=== PATIENT | male | born 1955 | race Hispanic/Latino ===

== ENCOUNTER → 2025-02-26 | Outpatient (REF) | payer MEDICARE ==
[~2025-02-26] MED LIST: ALBUTEROL SULF 0.083% NEB SOLN 3 ML NEB ONE
== END ==
LOC: RESP 14:09
PROVIDERS: ATTEND Nurse Practitioner Family
DX: J44.9 Chronic obstructive pulmonary disease, unspecified (principal); R94.2 Abnormal results of pulmonary function studies; J45.909 Unspecified asthma, uncomplicated
CPT/HCPCS: 94060; 94727; 94729